=== PATIENT | female | born 1985 ===

== ENCOUNTER 2024-02-16 08:47 | Outpatient (OUT) | payer OTHER, SELFPAY ==
--- NOTE | 2024-02-16 | XR_ITS ---
[address] [address] Patient Name: ROGELIO HERNANDEZ MRN: [id number] date: 1985 Sex: F Assigned Patient Location: Current Patient Location: Accession/Order Number: [id number] Exam Date: 02/16/2024 08:50 Report Date: 02/16/2024 09:30 At the request of: MENDOZA GAMBOA Procedure: XR hip LT 2V w/ pelvis PROCEDURE: XR hip LT 2V w/ pelvis COMPARISON: None. HISTORY: LEFT HIP PAIN FINDINGS: BONES:No fracture, acute abnormality, or significant arthropathy. SOFT TISSUES:Negative. No visible soft tissue swelling. EFFUSION:None visible. OTHER: Negative. XR/XR hip LT 2V w/ pelvis IMPRESSION: No acute abnormality Electronically authenticated by: KB SLATER Date: 02/16/2024 09:30
--- NOTE | 2024-02-16 | XR_ITS ---
The [address] [address] Patient Name: ROGELIO HERNANDEZ MRN: [id number] date: 1985 Sex: F Assigned Patient Location: Current Patient Location: Accession/Order Number: [id number] Exam Date: 02/16/2024 08:50 Report Date: 02/16/2024 09:26 At the request of: MENDOZA GAMBOA Procedure: XR ankle RT min 3V PROCEDURE: XR ankle RT min 3V COMPARISON: None. HISTORY: RIGHT ANKLE PAIN FINDINGS: BONES:Remote fibular fracture with internal fixation utilizing a lateral plate and screws. Mild enthesopathic spurring of the calcaneus at the Achilles insertion. No new fracture or dislocation. SOFT TISSUES:Negative. No visible soft tissue swelling. EFFUSION:None visible. OTHER: Negative. XR/XR ankle RT min 3V IMPRESSION: Remote distal fibular fracture with internal fixation Electronically authenticated by: KB SLATER Date: 02/16/2024 09:26
== END 2024-02-16 08:48 | disposition home or self-care (01) ==
LOC: EC 08:48
PROVIDERS: Visit Provider Orthopaedic Surgery
DX: M25.552 Pain in left hip (principal); M25.571 Pain in right ankle and joints of right foot; S89.391D Other physeal fracture of lower end of right fibula, subsequent encounter for fracture with routine healing
CPT/HCPCS: 73502; 73610